=== PATIENT | male | born 1965 | race Caucasian/White ===

== ENCOUNTER 2020-12-23 15:14 | Outpatient (REF) | payer OTHER, SELFPAY ==
[2020-12-23 16:57] LABS: Appearance Urine CLEAR; Color Urine YELLOW; Glucose Urine UA NEG (NEG); Leukocyte Esterase Urine NEG (NEG); Nitrite Urine NEG (NEG); Specific Gravity - Urine >= 1.030 (1.005-1.025); Urine Blood NEG (NEG); Urine Ketones NEG (NEG); Urine Protein TRACE MG/DL (NEG-TRACE)
[2020-12-23 17:17] LABS: Alanine Aminotransferase 43 U/L (0-40); Albumin Level 4.9 g/dL (3.5-5.0); Alkaline Phosphatase 59 U/L (39-117); Anion Gap 12 (12-20); Aspartate Amino Transferase 35 U/L (5-37); Bilirubin Total 0.8 mg/dL (0.0-1.0); Blood Urea Nitrogen 17 mg/dL (9-16); Calcium 10.3 mg/dL (8.4-10.2); Carbon Dioxide 29 mmol/L (22-29); Chloride 104 mmol/L (96-108); Cholesterol 213 mg/dL; Estimated Glomerular Filt Rate > 60; Glucose Fasting 84 mg/dL (60-99); HDL Cholesterol 52 mg/dL; LDL Cholesterol Calculated 143 mg/dl; Potassium 4.8 mmol/L (3.3-5.1); Sodium 140 mmol/L (135-145); Total Protein 7.9 g/dL (6.5-8.0); Triglycerides 94 mg/dL
[2020-12-23 17:39] LABS: Prostate Specific Antigen Scr 0.85 ng/mL (<0.05-4.0); TSH reflex Free T4 5.05 uIU/mL (0.32-4.0)
[2020-12-23 18:31] LABS: Free T4 (Free Thyroxine) 0.92 ng/dL (0.71-1.85)
[2020-12-24 04:31] LABS: HBc Num1 0.12 S/CO (0.00-0.79); HBsAGNum1 0.17 S/CO (0.00-0.99); Hepatitis B Core Antibody Nonreactive (Nonreactive); Hepatitis B Surface Antigen Negative (Negative); ~HepC Num1 0.12 S/CO (0.00-0.79); ~Hepatitis B Surface Antibody REACTIVE (Nonreactive); ~Hepatitis C Antibody Nonreactive (Nonreactive)
[2020-12-25 04:03] LABS: ~Hepatitis A Antibody IgM Nonreactive (Nonreactive)
== END 2020-12-23 15:15 | disposition home or self-care (01) ==
LOC: HO.HMGCLDS 15:14
PROVIDERS: Visit Provider Nurse Practitioner Family
DX: Z00.00 Encounter for general adult medical examination without abnormal findings (principal); Z12.5 Encounter for screening for malignant neoplasm of prostate; Z11.59 Encounter for screening for other viral diseases
CPT/HCPCS: 36415; 80053; 80061; 81003; 84153; 84439; 84443; 86704; 86706; 86709; 86803; 87340

== ENCOUNTER 2021-01-27 08:44 | Outpatient (REF) | payer OTHER, SELFPAY ==
--- NOTE | ~2021-01-27 | US_ITS ---
EXAMINATION: US ABDOMEN COMPLETE CLINICAL INFORMATION: Abnormal levels of other serum enzymes. COMPARISON: None TECHNIQUE: Real-time imaging of the abdominal viscera. FINDINGS: PANCREAS: Visualized portions unremarkable. ABDOMINAL AORTA: Visualized portions unremarkable. INFERIOR VENA CAVA: Visualized portions unremarkable. LIVER: Homogeneous echotexture. Anechoic cyst in the right lobe measuring 1.1 cm. Color Doppler showed no abnormal vascular flow. GALLBLADDER: Unremarkable. COMMON BILE DUCT: Normal in caliber measuring 0.3 cm in diameter. RIGHT KIDNEY: 12.2 cm. Unremarkable. LEFT KIDNEY: 10.2 cm. Unremarkable. SPLEEN: 10.7 cm. Unremarkable. FREE FLUID: None. US/US abdomen complete IMPRESSION: Small right hepatic cyst demonstrates benign features without other significant abnormality.
== END 2021-01-27 08:45 | disposition home or self-care (01) ==
LOC: HO.HMGCX 08:44
PROVIDERS: PCP Nurse Practitioner Family; Visit Provider Nurse Practitioner Family
DX: R74.8 Abnormal levels of other serum enzymes (principal)
CPT/HCPCS: 76700

== ENCOUNTER 2022-12-12 07:26 | Outpatient (REF) | payer OTHER, SELFPAY ==
[2022-12-12 11:38] LABS: MANUAL DIFF FLAG NO
[2022-12-12 11:41] LABS: Appearance Urine Clear; Color Urine Yellow; Glucose Urine UA Negative (Negative); Leukocyte Esterase Urine Negative (Negative); Nitrite Urine Negative (Negative); PH 5.5 (5.0-9.0); Specific Gravity - Urine 1.015 (1.005-1.025); Urine Blood Negative (Negative); Urine Ketones Negative (Negative); Urine Protein Negative (Neg-Trace)
[2022-12-12 12:03] LABS: Alanine Aminotransferase 33 U/L (0-40); Albumin Level 4.3 g/dL (3.5-5.0); Alkaline Phosphatase 50 U/L (39-117); Anion Gap 11 (12-20); Aspartate Amino Transferase 26 U/L (5-37); Bilirubin Total 0.5 mg/dL (0.0-1.0); Blood Urea Nitrogen 14 mg/dL (9-16); Calcium 9.7 mg/dL (8.4-10.2); Carbon Dioxide 25 mmol/L (22-29); Chloride 108 mmol/L (96-108); Cholesterol 189 mg/dL (<200); Estimated Glomerular Filt Rate > 60; Glucose Fasting 93 mg/dL (60-99); HDL Cholesterol 59 mg/dL (>40); LDL Cholesterol Calculated 111 mg/dL (<100); Potassium 4.1 mmol/L (3.3-5.1); Sodium 140 mmol/L (135-145); Total Protein 7.3 g/dL (6.5-8.0); Triglycerides 97 mg/dL (<150)
[2022-12-12 12:13] LABS: Prostate Specific Antigen Scr 2.75 ng/mL (<0.05-4.0)
[2022-12-12 12:19] LABS: TSH reflex Free T4 2.29 uIU/mL (0.32-4.0)
[2022-12-12 12:24] LABS: Basophils Percent Auto 0.7 % (0-2); Eosinophils Absolute Auto 0.4 X10*3/uL (0.0-0.4); Eosinophils Percent Auto 6.8 % (0-4); Hematocrit 37.9 % (42.0-52.0); Imm Gran Abs Auto 0.02 X10*3/uL (0.00-0.03); Imm Gran Pct Auto 0.4 % (0.0-0.4); Lymphocytes Absolute Auto 1.9 X10*3/uL (1.2-4.9); Lymphocytes Percent Auto 34.2 % (20-40); Mean Corpuscular HGB Conc 34.3 g/dl (31.0-36.0); Mean Corpuscular Hemoglobin 31.1 pg (27.0-33.0); Mean Corpuscular Volume 90.7 fL (80.0-98.0); Monocytes Absolute Auto 0.5 X10*3/uL (0.1-1.2); Monocytes Percent Auto 8.5 % (2-11); Neutrophils Absolute Auto 2.7 x10*3/uL (2.0-8.3); Neutrophils Percent Auto 49.4 % (45-73); Platelet Count 253 X10*3/uL (160-400); Red Blood Count 4.18 X10*6/uL (4.60-5.80); Red Cell Distribution Width 12.3 % (11.0-16.0); White Blood Count 5.6 X10*3/uL (4.8-10.8)
[2022-12-15 22:18] LABS: Thyroid Peroxidase Antibodies 3 IU/mL (<9)
== END 2022-12-12 07:27 | disposition home or self-care (01) ==
LOC: HO.HMGCLDS 07:26
PROVIDERS: PCP Nurse Practitioner Family; Visit Provider Nurse Practitioner Family
DX: Z00.00 Encounter for general adult medical examination without abnormal findings (principal); Z12.5 Encounter for screening for malignant neoplasm of prostate; R79.89 Other specified abnormal findings of blood chemistry; R94.6 Abnormal results of thyroid function studies
CPT/HCPCS: 36415; 80053; 80061; 81003; 84153; 84443; 85025; 86376

== ENCOUNTER 2023-07-04 10:59 | Outpatient (AMB) | payer OTHER, SELFPAY ==
--- OUTSIDE RECORDS SUMMARY | 2023-07-04 11:01 | XMS_ITS | Patient Health Record ---
Author Organization [facility] Address [address] [place] [phone] Support Name Relationship Address Phone Hakeem Cristina Guarantor Unknown Reason For Referral No Information Plan Of Treatment No Information Insurance Providers Payer Name Payer Address Payer Phone Subscriber Number Group Number Insured Name Patient Relationship to Insured Coverage Start Date Coverage End Date [employer] [address] [place] [phone] [id number] Hakeem Cristina Self - patient is the insured
--- NOTE | 2023-07-04 11:03 | AM.OFFWIN_ITS ---
Intake Vital Signs 07/04/23 11:07 Height 5 ft 9 in Weight 184 lb BMI 27.2 BP 150/100 H Blood Pressure Location Lt brachial Position Sitting Pulse 74 Pulse Source Pulse Oximeter Temp 97.2 F Temp Source Temporal Artery Scan Pulse Oximetry (%) 98 Oxygen Delivery Method Room Air Intake Visit Reasons: EST/right testical pain (lobby) Intake Note: pt is here today fot rt testical pain started 1 week ago Patient Tobacco Use Status: Never used Tobacco Allergies No Known Allergies Allergy (Verified 07/04/23 11:47) Medication List - Last Reconciled 07/04/23 by Juan Francisco Kellogg MD No Known Home Meds Do you need a note to return to daycare/school/sports/work: No HPI EST/right testical pain (lobby) HPI Details 57 yr old male presents to the office fo r a sick visit. Patient is reporting a painful right testicle for the past week. No difficulty in urinating or sexual activity. [facility] Family History Brother Substance use disorder Social History Housing: [facility] [place] Patient Tobacco Use Status: Never used Tobacco Tobacco use type: Cigar e-Cigarette/Vaping Use: Never Used Second Hand Smoke Exposure: No service: Yes Current occupational status: unemployed Current occupation: event security officer Current occupational exposures/hazards: Yes Cognitive needs: No Hearing needs: Yes (Tinnitis right ear) Vision needs: No Physical Exam Vital Signs: Last Vital Signs Temp 97.2 F 07/04/23 11:07 Pulse 74 07/04/23 11:07 BP 150/100 H 07/04/23 11:07 Pulse Ox 98 07/04/23 11:07 Oxygen Delivery Method Room Air 07/04/23 11:07 BMI result Body Mass Index 27.2 Other: Right testicle is larger than left. Testicle is firmer to palpation compared to the left. Assessment & Plan Assessment & Plan (1) Testicular mass: Code(s): N50.89 - Other specified disorders of the male genital organs Plan: A stat US has been requested. Will proceed workup once the results are avaiable. Orders: Orders US scrotum Today N50.89 - Other specified disorders of the male genital organs Coding Level of Care Code Est Pt Level 4 (35681) Diagnoses Testicular mass N50.89
[2023-07-04 11:07] VITALS: BP 150/100; PULSE 74; TEMP 36.2; O2SAT 98; BMI 27.2
== END 2023-07-04 12:08 | disposition home or self-care (01) ==
PROVIDERS: PCP Nurse Practitioner Family; Visit Provider Internal Medicine
DX: N50.89 Other specified disorders of the male genital organs (principal)
CPT/HCPCS: 99214

== ENCOUNTER 2023-07-04 11:49 | Outpatient (REF) | payer OTHER, SELFPAY ==
--- NOTE | ~2023-07-04 | US_ITS ---
EXAMINATION: US SCROTUM CLINICAL INFORMATION: Right testicular mass. COMPARISON: None available. TECHNIQUE: A sonogram of the scrotum was performed assessing kelsey-scale appearance and color Doppler flow. Spectral Doppler analysis of the arterial and venous flow were performed in the testes bilaterally. FINDINGS: RIGHT: Right testicle measures 4.5 x 2.2 x 3.5 cm, volume 18 mL. No focal testicular parenchymal lesions are visualized. Spectral Doppler analysis of the arterial and venous flow is normal in the right testis. Right epididymal tail is increase in size with diffuse heterogeneity and increased Doppler detectable vascular flow. Right epididymal head cyst measuring up to 0.9 cm. Slightly hyperechoic focus within the epididymal tail measuring up to 1.6 cm which may be related to inflammatory change or indicate an underlying soft tissue lesion. [id number] right-sided hydrocele. Mild right-sided varicocele. LEFT: Left testicle measures 4 x 2 x 2.7 cm, volume 11.6 mL. No focal testicular parenchymal lesions are visualized. Spectral Doppler analysis of the arterial and venous flow is normal in the left testis. Left epididymal head is normal in size. Mild left-sided varicocele. No left-sided hydrocele. Left epididymal Doppler flow is normal. US/US scrotum IMPRESSION: 1. Findings consistent with right-sided epididymitis. Associated [id number] right-sided hydrocele. 2. Slightly hyperechoic focus within the epididymal tail measuring up to 1.6 cm which may be related to inflammatory change or indicate an underlying soft tissue lesion. Right epididymal head cyst measuring 0.9 cm. 3. Mild bilateral varicoceles.
== END 2023-07-04 11:50 | disposition home or self-care (01) ==
LOC: HO.HMGCX 11:49
PROVIDERS: PCP Nurse Practitioner Family; Visit Provider Internal Medicine
DX: N45.1 Epididymitis (principal)
CPT/HCPCS: 76870